=== PATIENT | female | born 1950 | race Caucasian/White ===

== ENCOUNTER → 2016-09-26 | Outpatient (CLI) | payer MEDICARE ==
--- NOTE | 2016-09-27 00:40 | US ---
EXAMINATION TYPE: US st tissue neck DATE OF EXAM: 09/26/2016 2:06 PM COMPARISON: NONE CLINICAL HISTORY: 66-year-old female D17.0 LIPOMA. Left neck/shoulder palpable area. TECHNIQUE: Targeted sonographic examination along the left neck/shoulder at the palpable site. FINDINGS: PURCHASING ASSOCIATE NOTES: Scanned left neck/shoulder palpable area. No abnormality seen at this time. Scanned right neck/shoulder for comparison. No abnormality seen at this time IMPRESSION: Targeted scanning at the left neck/shoulder shows relatively symmetric appearance to the contralatera l side without discrete sonographic abnormality.
--- NOTE | 2016-09-27 01:03 | BD ---
EXAMINATION TYPE: MG DEXA axial skeleton. DATE OF EXAM: 09/26/2016 1:57 PM COMPARISON: NONE CLINICAL HISTORY: 66-year-old female after specified disorders of bone density, postmenopausal screen ing Height: 62 IN Weight: 135 LBS FRAX RISK QUESTIONS: Alcohol (3 or more units per day): YES Family History (Parent hip fracture): NO Glucocorticoids (More than 3mos): NO (Ex: prednisone, prednisolone, methylprednisolone, dexamethasone, and hydrocortisone). History of Fracture in Adulthood: NO Secondary Osteoporosis: 1. Type 1 Diabetes: NO 2. Hyperthyroidism: NO 3. Menopause before 45: YES AGE 34 4. Malnutrition: NO 5. Chronic liver disease: NO Rheumatoid Arthritis: NO Current Tobacco Use: YES RISK FACTORS HISTORY OF: Family History of Osteoporosis: YES AUNT(P) Smoke tobacco: YES Drink Alcohol: YES Active: YES Diet low in dairy products/other sources of calcium: YES Postmenopausal woman: AGE 34 MEDICATIONS: Additional Medications: CALCIUM, VIT D, ZOLOFT, ABILIFY, ACID REFLUX MEDS, EXAM MEASUREMENTS: Bone mineral densitometry was performed using the [email or web address] System. Bone mineral density as measured about the Lumbar spine is: ----- L1-L4(G/cm2): 1.063 T Score Values are as follows: ----- L2: -1.8 ----- L3: -0.7 ----- L4: -0.1 ----- L1-L4: Bone mineral density BASELINE Bone mineral density about the R hip (g/cm2): 0.751 Bone mineral density about the L hip (g/cm2): 0.749 T Score values are as follows: -----R Neck: -2.1 -----L Neck: -2.1 -----R Total: -1.0 -----L Total: -0.8 Bone mineral density BASELINE IMPRESSION: Osteopenia as indicated by T score values in the lumbar spine and both hips. There is slightly increased risk of fracture and the patient may be considered for treatment. Re-Screen 2-5 years. NOTE: T-SCORE=SD OF THE YOUNG ADULT MEAN.
--- NOTE | 2016-09-28 07:33 | MM ---
Reason for exam: screening (asymptomatic). Last mammogram was performed 1 year and 2 months ago. History: Family history of breast cancer in 2 sisters. Physical Findings: A clinical breast exam by your physician is recommended on an annual basis and results should be correlated with mammographic findings. MG 3D Screening Mammo W/Cad Bilateral CC and MLO view(s) were taken. Prior study comparison: July 30, 2015, mammogram, performed at [facility]. The breast tissue is heterogeneously dense. This may lower the sensitivity of mammography. No significant changes when compared with prior studies. ASSESSMENT: Benign, BI-RAD 2 RECOMMENDATION: Routine screening mammogram of both breasts in 1 year.
== END ==
LOC: RADMAMWWP 13:32
PROVIDERS: ATTEND Family Medicine
DX: Z12.31 Encounter for screening mammogram for malignant neoplasm of breast (principal); M85.80 Other specified disorders of bone density and structure, unspecified site; D17.0 Benign lipomatous neoplasm of skin and subcutaneous tissue of head, face and neck
CPT/HCPCS: 77080; 77063; 76536; G0202

== ENCOUNTER 2017-07-04 08:04 | Day surgery (SDC) | payer MEDICARE ==
[2017-06-29 14:20] VITALS: BMI 24.7
[~2017-07-04 08:04] MED LIST: LACTATED RINGERS 1,000 ML IV SCH
[2017-07-04 08:37] VITALS: TEMP 98
[2017-07-04] MEDS ORDERED: LIDOCAINE 1% 20 ML VIAL (10MG/ML) FOR IV START INTRADERMA ONE (08:38)
[2017-07-04] MEDS ORDERED: PROPOFOL 10 MG/ML 20 ML VIAL IV ONE (08:44)
--- NOTE | 2017-07-04 09:18 | P.PCN ---
Date of Procedure: 07/04/17 Procedure(s) Performed: Procedure: Colonoscopy and biopsy. Preoperative diagnosis: Screening for neoplasia. Postoperative diagnosis: Exam of the colon and terminal ileum within normal limits. Preparation: HalfLytely prep. Sedation: Was provided by anesthesia. Brief clinical history: The patient is 67-year-old female who is referred for this evaluation for screening for neoplasia. She had a prior exam more than 10 years ago. The patient reported change in her bowels within the last year including more frequent and looser stools and episodes of diarrhea. No bleeding or anemia. Procedure: With the patient on her left lateral decubitus position and after informed consent and adequate sedation, the perianal area was inspected and it did not show any fissures or fistulas. There were no masses felt on digital rectal examination. The Olympus CFQ 160L video colonoscope was then inserted in the rectum in the usual fashion and advanced to the cecum. I intubated the ileocecal valve and examined the terminal ileum. Terminal ileum and colon appeared healthy with no edema, erythema, friability, ulceration, exudation or spontaneous bleeding. No polyps or tumors were seen or any obvious diverticular disease or other pathology. I retroflexed the endoscope in the rectum before the endoscope was withdrawn. I obtained biopsies from the terminal ileum and right colon as well. The patient tolerated the procedure well. Plan: The patient was reassured. Will await biopsy results. I recommended repeat colonoscopy in 10 years. Further plans in regards to her bowel issues can be made based on her course and biopsy results. I will be happy to see her in the office if her symptoms persist. She will follow-up with you as planned.
[2017-07-04 09:45] VITALS: BP 117/63; PULSE 77; RESP 18
== END 2017-07-04 09:52 | disposition home or self-care (01) ==
LOC: ORWHC2ENDO 08:04
DX: R19.4 Change in bowel habit (principal); R19.7 Diarrhea, unspecified; J44.9 Chronic obstructive pulmonary disease, unspecified; K21.9 Gastro-esophageal reflux disease without esophagitis; I10 Essential (primary) hypertension; E78.5 Hyperlipidemia, unspecified; G47.33 Obstructive sleep apnea (adult) (pediatric); Z79.899 Other long term (current) drug therapy; Z88.1 Allergy status to other antibiotic agents; Z88.6 Allergy status to analgesic agent; Z88.8 Allergy status to other drugs, medicaments and biological substances
CPT/HCPCS: 88305; 45380; J2704

== ENCOUNTER → 2017-11-30 | Outpatient (CLI) | payer MEDICARE ==
--- NOTE | 2017-11-30 14:49 | XR ---
EXAMINATION TYPE: XR chest 2V DATE OF EXAM: 11/30/2017 COMPARISON: None HISTORY: 67 year-old female shortness of breath, COPD TECHNIQUE: Frontal and lateral views FINDINGS: Heart normal size. Mild atherosclerotic calcifications in the aortic arch. Mild interstitial prominen ce and mild hyperinflation. Some hazy density at the cardiac apex suggests epicardial fat pad. No con solidation or pleural effusion. IMPRESSION: Mild COPD changes. No acute cardiopulmonary process.
== END | disposition home or self-care (01) ==
LOC: RADXRMAIN 13:44
PROVIDERS: ATTEND Family Medicine
DX: J44.9 Chronic obstructive pulmonary disease, unspecified (principal)
CPT/HCPCS: 71046

== ENCOUNTER → 2018-04-18 | Outpatient (CLI) | payer MEDICARE ==
--- NOTE | 2018-04-18 12:38 | US ---
EXAMINATION TYPE: US abdomen complete DATE OF EXAM: 04/18/2018 COMPARISON: NONE CLINICAL HISTORY: R19.4 Change in bowel habits. Nausea, abdominal pain. EXAM MEASUREMENTS: Liver Length: 15.1 cm Gallbladder Wall: 0.1 cm CBD: 0.2 cm Spleen: 8.3 cm Right Kidney: 11.0 x 5.2 x 4.8 cm Left Kidney: 10.7 x 4.7 x 4.7 cm Pancreas: wnl Liver: wnl Gallbladder: wnl Evidence for sonographic Carlisle's sign: No CBD: wnl Spleen: wnl Right Kidney: wnl Left Kidney: wnl Upper IVC: wnl Abd Aorta: wnl The liver is homogenous. The intrahepatic portion of the IVC and proximal abdominal aorta are within normal limits. There is no evidence of cholelithiasis. Common bile duct is unremarkable. The visu alized portions of the pancreas are homogenous. The spleen is unremarkable. Kidneys are symmetric a nd free of hydronephrosis. No renal lesions are seen. IMPRESSION: No distinct abnormality is appreciated.
== END ==
LOC: RADUSWWP 11:54
PROVIDERS: ATTEND Family Medicine
DX: R19.4 Change in bowel habit (principal)
CPT/HCPCS: 76700

== ENCOUNTER → 2018-05-18 | Outpatient (CLI) | payer MEDICARE ==
--- NOTE | 2018-05-27 11:18 | MM ---
Reason for exam: screening (asymptomatic). Last mammogram was performed 1 year and 8 months ago. History: Family history of breast cancer in 2 sisters. MG 3D Screening Mammo W/Cad Bilateral CC and MLO view(s) were taken. Prior study comparison: September 26, 2016, bilateral MG 3d screening mammo w/cad. July 30, 2015, mammogram, performed at [facility]. The breast tissue is heterogeneously dense. This may lower the sensitivity of mammography. There are benign-appearing round, dystrophic bilateral breast calcification. No discrete abnormality. ASSESSMENT: Benign, BI-RAD 2 RECOMMENDATION: Routine screening mammogram of both breasts in 1 year.
== END | disposition home or self-care (01) ==
LOC: RADMAMWWP 09:57
PROVIDERS: ATTEND Family Medicine
DX: Z12.31 Encounter for screening mammogram for malignant neoplasm of breast (principal)
CPT/HCPCS: 77063; 77067

== ENCOUNTER 2018-05-22 09:26 | Day surgery (SDC) | payer MEDICARE ==
[2018-05-17 13:38] VITALS: BMI 24.7
[2018-05-22 09:46] VITALS: RESP 16; TEMP 97.7
[2018-05-22] MEDS ORDERED: PROPOFOL 10 MG/ML 20 ML VIAL IV ONE (10:12)
[2018-05-22] MEDS ORDERED: LIDOCAINE 1% INJ 10MG/ML (20 ML MDV) ONE (10:12)
--- NOTE | 2018-05-22 10:46 | P.PCN ---
Date of Procedure: 05/22/18 Procedure(s) Performed: Procedure: Esophagogastroduodenoscopy and biopsy. Preoperative diagnosis: Heartburn and dyspepsia. Postoperative diagnosis: 1. Mild gastritis. 2. Multiple biopsies obtained from the duodenum, antrum and esophagus. Preparation and sedation: Was provided by anesthesia. Brief clinical history: The patient is a 68-year-old female who is referred for this evaluation for heartburn and dyspepsia type symptoms of several months duration. The patient had a colonoscopy with me in June of last year for screening for neoplasia and her exam was within normal limits. She was experiencing frequent looser stools back then and biopsies obtained from the terminal ileum and colon were normal. This evaluation is to assess for esophagitis, complicated reflux disease or other pathology. Procedure: With the patient on her left lateral decubitus position and after informed consent and adequate sedation, I passed the Olympus-GIF 190 video upper endoscope through the cricopharyngeus down the esophagus. There was no obvious hiatal hernia or any obvious esophagitis or complicated reflux disease. The endoscope was then passed into the stomach which was insufflated with air and inspected in detail including the retroflex view in the cardia. There was some mottling and erythema in the antrum but no ulcers or erosions. Pyloric channel, duodenal bulb, post bulbar area and descending duodenum appeared within normal limits. Because of her symptoms, I obtained biopsies from the duodenum, antrum and esophagus then the endoscope was withdrawn. The patient tolerated the procedure well. Plan: The patient was reassured. Will await biopsy results and make further plans based on her course and biopsy results. She will follow-up with you as planned and I will be happy to see in the office if her symptoms persist.
[2018-05-22 11:00] VITALS: BP 152/83; PULSE 63
== END 2018-05-22 11:19 | disposition home or self-care (01) ==
LOC: ORWHC2ENDO 09:26
DX: K29.50 Unspecified chronic gastritis without bleeding (principal); K21.9 Gastro-esophageal reflux disease without esophagitis; J44.9 Chronic obstructive pulmonary disease, unspecified; M19.90 Unspecified osteoarthritis, unspecified site; I10 Essential (primary) hypertension; E78.5 Hyperlipidemia, unspecified; G47.33 Obstructive sleep apnea (adult) (pediatric); D68.0 Von Willebrand disease; F17.210 Nicotine dependence, cigarettes, uncomplicated; Z79.51 Long term (current) use of inhaled steroids; Z79.899 Other long term (current) drug therapy; Z88.6 Allergy status to analgesic agent; Z88.0 Allergy status to penicillin; Z88.1 Allergy status to other antibiotic agents
CPT/HCPCS: 88305; 43239; J2001; J2704

== ENCOUNTER → 2019-06-24 | Outpatient (CLI) | payer MEDICARE ==
--- NOTE | 2019-06-24 17:39 | XR ---
EXAMINATION TYPE: XR Hip Limited LT DATE OF EXAM: 06/24/2019 CLINICAL HISTORY: Pain TECHNIQUE: AP and frogleg views of the left hip are obtained. COMPARISON: None. FINDINGS: There is no acute fracture/dislocation evident in the left hip. The joint space in the hi p appears within normal limits. The overlying soft tissue appears unremarkable. IMPRESSION: There is no acute fracture or dislocation in the left hip.
--- NOTE | 2019-06-24 17:39 | XR ---
EXAMINATION TYPE: XR pelvis AP view DATE OF EXAM: 06/24/2019 CLINICAL HISTORY: pain TECHNIQUE: Single view the pelvis is submitted. FINDINGS: No evidence for fracture, dislocation or bony lesion. Joint spaces are well-preserved. S I joints appear symmetric. IMPRESSION: 1. No acute fracture or dislocation seen. ICD 10 NO FRACTURE, INITIAL EVALUATION
--- NOTE | 2019-06-24 17:40 | XR ---
EXAMINATION TYPE: XR lumbar spine 2 or 3V DATE OF EXAM: 06/24/2019 CLINICAL HISTORY: pain TECHNIQUE: Three views of the lumbar spine are submitted. COMPARISON: None. FINDINGS: There are 5 lumbar type vertebral bodies identified. The lumbar spine shows satisfactory alignment w ithout evidence of acute fracture or dislocation. Vertebral body heights are within normal limits. Moderate to severe degenerative disc space narrowing L4-5 and L5-S1. Grade 1 anterolisthesis L4 and L 5 3 mm. The overlying soft tissue appears unremarkable. IMPRESSION: No acute fracture or dislocation is seen in the lumbar spine. ICD 10 NO FRACTURE, INITIAL EVALUATION
--- NOTE | 2019-06-24 17:41 | XR ---
EXAMINATION TYPE: XR ribs LT w pa chest xray DATE OF EXAM: 06/24/2019 COMPARISON: NONE HISTORY: Pain TECHNIQUE: Single view of the chest 4 views of the ribs are submitted. FINDINGS: The lungs are clear. No Evidence for pneumothorax. No evidence for focal contusion. Medi astinal structures are midline. Evaluation of the ribs fails to demonstrate evidence for displaced r ib fracture or secondary sign of rib fracture. IMPRESSION: Negative study
== END | disposition home or self-care (01) ==
LOC: RAD 17:03
PROVIDERS: ATTEND Nurse Practitioner
DX: M25.552 Pain in left hip (principal); R07.81 Pleurodynia; W01.0XXA Fall on same level from slipping, tripping and stumbling without subsequent striking against object, initial encounter
CPT/HCPCS: 72100; 72170; 73501

== ENCOUNTER → 2020-05-11 | Outpatient (CLI) | payer MEDICARE ==
--- NOTE | 2020-05-11 13:29 | MM ---
Reason for exam: screening (asymptomatic). Last mammogram was performed 2 years ago. History: Patient is postmenopausal. Family history of breast cancer in 2 sisters. Took hormonal contraceptives for 5 years. Physical Findings: A clinical breast exam by your physician is recommended on an annual basis and results should be correlated with mammographic findings. MG 3D Screening Mammo W/Cad Bilateral CC and MLO view(s) were taken. Prior study comparison: May 18, 2018, bilateral MG 3d screening mammo w/cad. September 26, 2016, bilateral MG 3d screening mammo w/cad. The breast tissue is heterogeneously dense. This may lower the sensitivity of mammography. There are benign appearing round calcifications in the right breast. ASSESSMENT: Benign, BI-RAD 2 RECOMMENDATION: Routine screening mammogram of both breasts in 1 year.
== END | disposition home or self-care (01) ==
LOC: RADMAMWWP 09:19
PROVIDERS: ATTEND Family Medicine
DX: Z12.31 Encounter for screening mammogram for malignant neoplasm of breast (principal)
CPT/HCPCS: 77063; 77067

== ENCOUNTER → 2021-06-01 | Outpatient (CLI) | payer MEDICARE ==
--- NOTE | 2021-06-01 14:51 | BD ---
EXAMINATION TYPE: Axial Bone Density DATE OF EXAM: 06/01/2021 COMPARISON: DEXA bone scan September 26, 2016 CLINICAL HISTORY: Postmenopausal female Height: 5 FT 1 1/2 IN Weight: 138 FRAX RISK QUESTIONS: Alcohol (3 or more units per day): NO Family History (Parent hip fracture): NO Glucocorticoids (More than 3mos): NO (Ex: prednisone, prednisolone, methylprednisolone, dexamethasone, and hydrocortisone). History of Fracture in Adulthood: NO Secondary Osteoporosis: 1. Type 1 Diabetes: NO 2. Hyperthyroidism: NO 3. Menopause before 45: YES 4. Malnutrition: NO 5. Chronic liver disease: NO Rheumatoid Arthritis: NO Current Tobacco Use: YES RISK FACTORS HISTORY OF: Surgery to Spine/Hip(right/left)/Wrist (right/left): NO Family History of Osteoporosis: YES Active: YES Diet low in dairy products/other sources of calcium: NO Postmenopausal woman: YES Take estrogen and/or progesterone medications: NO Lost more than 2 inches in height since high school: NO Frequent falls: NO Poor Health: GOOD Hyperparathyroidism: NO Adrenal Insufficiency: NO MEDICATIONS: Additional Medications: ABILIFY,LIPITOR, PREVACID, REGLAN,METOPROLOL TARTRATE, ZOLOFT, ADVAIR, CALCIUM Additional History: EXAM MEASUREMENTS: Bone mineral densitometry was performed using the [employer] System. Bone mineral density as measured about the Lumbar spine is: ----- L1-L4(G/cm2): 1.088 T Score Values are as follows: ----- L2: -1.6 ----- L3: -0.7 ----- L4: 0.1 ----- L1-L4: -0.8 Bone mineral density has: INCREASED 1.4 % since study of: 2016 Bone mineral density about the R hip (g/cm2): 0.693 Bone mineral density about the L hip (g/cm2): 0.687 T Score values are as follows: -----R Neck: -2.5 -----L Neck: -2.5 -----R Total: -1.4 -----L Total: -1.3 Bone mineral density has: DECREASED -6.5 % since study of: 2017 IMPRESSION: Osteopenia (T Score between -2.5 and -1) remains present. There is slightly increased risk of fracture and the patient may be considered for treatment. Re-Screen 2-5 years. NOTE: T-SCORE=SD OF THE YOUNG ADULT MEAN.
--- NOTE | 2021-06-02 11:42 | MM ---
Reason for exam: screening (asymptomatic). Last mammogram was performed 1 year and 1 month ago. History: Patient is postmenopausal. Family history of breast cancer in sister at age 30 and breast cancer in sister at age 40. Took hormonal contraceptives for 5 years. Physical Findings: A clinical breast exam by your physician is recommended on an annual basis and results should be correlated with mammographic findings. MG 3D Screening Mammo W/Cad Bilateral CC and MLO view(s) were taken. Prior study comparison: May 11, 2020, bilateral MG 3d screening mammo w/cad. May 18, 2018, bilateral MG 3d screening mammo w/cad. The breast tissue is heterogeneously dense. This may lower the sensitivity of mammography. Finding: There are indeterminate calcifications in the subareolar position of the left breast and medial on left CC view. New finding since May 11, 2020 and May 18, 2018. ASSESSMENT: Incomplete: need additional imaging evaluation, BI-RAD 0 RECOMMENDATION: Special view mammogram of the left breast. [facility] will attempt to contact patient to return for supplemental views.
== END | disposition home or self-care (01) ==
LOC: RADMAMWWP 11:02
PROVIDERS: ATTEND Family Medicine
DX: Z12.31 Encounter for screening mammogram for malignant neoplasm of breast (principal); M85.89 Other specified disorders of bone density and structure, multiple sites; Z78.0 Asymptomatic menopausal state; Z80.3 Family history of malignant neoplasm of breast
CPT/HCPCS: 77063; 77067; 77080

== ENCOUNTER → 2021-06-01 | Outpatient (CLI) | payer MEDICARE ==
--- NOTE | 2021-06-01 11:48 | CTL ---
EXAMINATION TYPE: CT Low Dose Lung DATE OF EXAM ORDERED: 06/01/2021 HISTORY: . Lung cancer screening CT DLP: [address] CTDI: 1.99 mGy Automated exposure control for dose reduction was used. SCREENING VISIT: COMPARISON: None TECHNIQUE: Low dose computed tomography scan was performed through the chest at 1 mm thick sections a nd reconstructed images in multiple planes at 1 mm and [address] DIAGNOSTIC QUALITY: Satisfactory FINDINGS: There is emphysematous changes with interlobular septal thickening compatible with mild chronic inter stitial lung disease. There is biapical pleural thickening. There is a 4 mm nodule subpleural right upper lobe axial image 46. Subpleural nodule 4 mm left upper lobe axial image 52 Additional significant subcutaneous 5 mm multiple subpleural nodules are seen all likely chronic infl ammatory. There are subsegmental changes most typical of atelectasis right lower lobe. No pneumothorax or sizab le pleural effusion. No consolidative pneumonia. Atherosclerotic change aorta. Coronary artery calcification. The heart is enlarged. Hypertrophic and degenerative changes of the spine. 1.2 cm left adrenal nodule most typical of adrenal adenoma. IMPRESSION: 1. COPD with findings suggestive of mild chronic lung disease. 2. Multiple 5 mm or less subpleural nodules likely benign and inflammatory. 2. Coronary artery calcium change. CT LUNG RAD AND CT CHEST RECOMMENDATION: Lung-Rad 2 Benign Appearance or Behavior: Continue annual sc reening with LDCT in 12 months.
== END | disposition home or self-care (01) ==
LOC: RADCTMAIN 11:12
PROVIDERS: ATTEND Family Medicine
DX: Z12.2 Encounter for screening for malignant neoplasm of respiratory organs (principal); J44.9 Chronic obstructive pulmonary disease, unspecified; R91.8 Other nonspecific abnormal finding of lung field; Z87.891 Personal history of nicotine dependence
CPT/HCPCS: 71271

== ENCOUNTER → 2021-06-03 | Outpatient (CLI) | payer MEDICARE ==
--- NOTE | 2021-06-04 10:52 | MM ---
Reason for exam: additional evaluation requested from abnormal screening. Last mammogram was performed less than 1 month ago. History: Patient is postmenopausal. Family history of breast cancer in sister at age 30 and breast cancer in sister at age 40. Took hormonal contraceptives for 5 years. Physical Findings: Nurse did not find any significant physical abnormalities on exam. MG 3D Work Up W/Cad LT CC with magnification, LM with magnification, and LM view(s) were taken of the left breast. Prior study comparison: June 01, 2021, bilateral MG 3d screening mammo w/cad. May 11, 2020, bilateral MG 3d screening mammo w/cad. The breast tissue is heterogeneously dense. This may lower the sensitivity of mammography. No suspicious clustered calcifications. These results were verbally communicated with the patient and result sheet given to the patient on 06/03/21. ASSESSMENT: Probably benign, BI-RAD 3 RECOMMENDATION: Follow-up diagnostic mammogram of the left breast in 6 months.
== END | disposition home or self-care (01) ==
LOC: RADMAMWWP 13:33
PROVIDERS: ATTEND Family Medicine
DX: R92.8 Other abnormal and inconclusive findings on diagnostic imaging of breast (principal); Z78.0 Asymptomatic menopausal state; Z80.3 Family history of malignant neoplasm of breast
CPT/HCPCS: 77065; G0279; 77061

== ENCOUNTER → 2021-12-01 | Outpatient (CLI) | payer MEDICARE ==
--- NOTE | 2021-12-01 10:32 | MM ---
Reason for Exam: Follow-up at short interval from prior study. Last screening mammogram was performed 6 month(s) ago. Patient History: Menarche at age 13. First Full-Term at age 24. Hysterectomy at age 34. Postmenopausal. Patient used Hormonal Contraceptives for 5 years. Sister had breast cancer, age 30. Sister had breast cancer, age 40. Risk Values: Seema 5 year model risk: 7.0%. NCI Lifetime model risk: 18.3%. Prior Study Comparison: 05/11/2020 Bilateral Screening Mammogram, [facility]. 06/01/2021 Bilateral Screening Mammogram, [facility]. 06/03/2021 Left Diagnostic Mammogram, [facility]. Tissue Density: Left: The breast tissue is heterogeneously dense. This may lower the sensitivity of mammography. Findings: Analyzed By CAD. No suspicious microcalcifications in left breast. No evidence for mass or distortion. Overall Assessment: Benign, BI-RAD 2 Management: Screening Mammogram of both breasts in 6 months. A clinical breast exam by your physician is recommended on an annual basis and results should be correlated with mammographic findings. This exam should not preclude additional follow-up of suspicious palpable abnormalities. Results were given to the patient verbally at the time of exam. Electronically signed and approved by: Manohar Hancock M.D. Radiologis
== END | disposition home or self-care (01) ==
LOC: RADMAMWWP 10:05
PROVIDERS: ATTEND Family Medicine
DX: R92.8 Other abnormal and inconclusive findings on diagnostic imaging of breast (principal); Z78.0 Asymptomatic menopausal state; Z80.3 Family history of malignant neoplasm of breast
CPT/HCPCS: 77065; G0279; 77061

== ENCOUNTER → 2022-06-06 | Outpatient (CLI) | payer MEDICARE ==
--- NOTE | 2022-06-06 14:40 | CTL ---
EXAMINATION TYPE: CT Low Dose Lung DATE OF EXAM ORDERED: 06/06/2022 HISTORY: Z87.891 personal hx tobacco use. Lung cancer screening CT DLP: [address] CTDI: 1.8 mGy Automated exposure control for dose reduction was used. SCREENING VISIT: Follow-up COMPARISON: CT Low Dose Lung cancer screening 06/01/2021 TECHNIQUE: Low dose computed tomography scan was performed through the chest at 1 mm thick sections a nd reconstructed images in multiple planes at 1 mm and [address] DIAGNOSTIC QUALITY: Satisfactory FINDINGS: LUNG NODULES: No clinically significant pulmonary nodules are identified. Previous before meals nodul es are more consistent with subpleural fibrotic changes. No new or enlarging pulmonary nodules greate r than 5 mm demonstrated. LUNGS: COPD: Severity: None Fibrosis: Severity: Mild Lymph nodes: None Other findings: None RIGHT PLEURAL SPACE: Effusion: None Calcification: None Thickening: None Pneumothorax: None LEFT PLEURAL SPACE: Effusion: None Calcification: None Thickening: None Pneumothorax: None HEART: Heart Size: Normal Coronary Calcification: Small Pericardial Effusion: None OTHER FINDINGS: Upper abdomen: None Bony thorax: None Supraclavicular region: None Other: None IMPRESSION: No clinically significant pulmonary nodules. No new or enlarging pulmonary nodules greate r than [address] LUNG RAD AND CT CHEST RECOMMENDATION: Lung-Rad 1 Negative: Continue annual screening with LDCT in 12 months. S Modifier (other clinically significant findings): None
--- NOTE | 2022-06-08 12:10 | MM ---
Reason for Exam: Additional evaluation requested from prior study. Last screening mammogram was performed 12 month(s) ago. Patient History: Menarche at age 13. First Full-Term at age 24. Hysterectomy at age 34. Postmenopausal. Patient used Hormonal Contraceptives for 5 years. Sister had breast cancer, age 30. Sister had breast cancer, age 40. Risk Values: Seema 5 year model risk: 7.1%. NCI Lifetime model risk: 17.5%. Tissue Density: The breast tissue is heterogeneously dense. This may lower the sensitivity of mammography. Findings: Analyzed By CAD. Benign-appearing bilateral axillary lymph nodes are redemonstrated. There are occasional small benign-appearing round calcifications in the bilateral breasts redemonstrated. No suspicious new mass or distortion in either breast. Overall Assessment: Benign, BI-RAD 2 Management: Screening Mammogram of both breasts in 1 year. A clinical breast exam by your physician is recommended on an annual basis and results should be correlated with mammographic findings. This exam should not preclude additional follow-up of suspicious palpable abnormalities. Results were given to the patient verbally at the time of exam. Electronically signed and approved by: Rivas Tapia M.D.
== END | disposition home or self-care (01) ==
LOC: RADMAMWWP 12:47
PROVIDERS: ATTEND Family Medicine
DX: Z12.2 Encounter for screening for malignant neoplasm of respiratory organs (principal); R92.8 Other abnormal and inconclusive findings on diagnostic imaging of breast; Z87.891 Personal history of nicotine dependence; Z78.0 Asymptomatic menopausal state; Z80.3 Family history of malignant neoplasm of breast
CPT/HCPCS: 77066; 71271; G0279; 77062

== ENCOUNTER → 2023-06-07 | Outpatient (CLI) | payer MEDICARE ==
--- NOTE | 2023-06-07 20:47 | MM ---
Reason for Exam: Screening (asymptomatic). Last screening mammogram was performed 12 month(s) ago. Patient History: Menarche at age 13. First Full-Term at age 24. Hysterectomy at age 34. Postmenopausal. Patient used Hormonal Contraceptives for 5 years. Sister had breast cancer, age 30. Sister had breast cancer, age 40. Risk Values: Tawana 5 year model risk: 7.1%. NCI Lifetime model risk: 16.6%. Prior Study Comparison: 06/03/2021 Left Diagnostic Mammogram, [facility]. 12/01/2021 Left MG 3D diag mammo w/cad LT, [facility]. 06/06/2022 Bilateral MG 3D diag mammo w/cad [place], [facility]. Tissue Density: The breast tissue is heterogeneously dense. This may lower the sensitivity of mammography. Findings: Analyzed By CAD. There is no suspicious group of microcalcifications or new suspicious mass in either breast. Overall Assessment: Negative, BI-RAD 1 Management: Screening Mammogram of both breasts in 1 year. SEE NOTE BELOW IN REGARDS TO PATIENT'S INCREASED 5 YEAR TAWANA SCORE. Patient should continue monthly self-breast exams. A clinical breast exam by your physician is recommended on an annual basis. This exam should not preclude additional follow-up of suspicious palpable abnormalities. Note on Tawana scores and lifetime risk: 1. A Tawana score greater than 3% is considered moderate risk. If this is the case, consider specialist referral to assess eligibility for a risk reducing agent. 2. If overall lifetime risk for the development of breast cancer is 20% or higher, the patient may qualify for future screening with alternating mammogram and breast MRI. Electronically signed and approved by: Rosa Maria Sheriff M.D. Radiologist
--- NOTE | 2023-06-09 18:14 | CTL ---
EXAMINATION TYPE: CT Low Dose Lung DATE OF EXAM ORDERED: 06/07/2023 HISTORY: . Lung cancer screening CT DLP: 76 mGycm Automated exposure control for dose reduction was used. SCREENING VISIT: Subsequent COMPARISON: 06/06/2022 TECHNIQUE: Low dose computed tomography scan was performed through the chest at 1 mm thick sections a nd reconstructed images in the coronal plane at [address] DIAGNOSTIC QUALITY: Satisfactory FINDINGS: LUNG NODULES: None. LUNGS: COPD: Severity: None Fibrosis: Severity: Minimal Lymph nodes: None Other findings: None RIGHT PLEURAL SPACE: Effusion: None Calcification: None Thickening: None Pneumothorax: None LEFT PLEURAL SPACE: Effusion: None Calcification: None Thickening: None Pneumothorax: None HEART: Heart Size: Normal Coronary calcification: Moderate Pericardial effusion: None OTHER FINDINGS: Upper abdomen: Normal Bony thorax: Normal Supraclavicular region: Normal Other: Ascending thoracic aorta at the main pulmonary artery is 3.2 cm. Main pulmonary artery bifurca tion is 2.4 cm. IMPRESSION: 1. No suspicious changes for primary or metastatic neoplasm FOLLOW UP CT CHEST RECOMMENDATION: Follow-up low-dose CT chest [address] LUNG RAD: Lung-Rad 1 Negative
== END | disposition home or self-care (01) ==
LOC: RADMAMWWP 11:25
PROVIDERS: ATTEND Family Medicine
DX: Z12.31 Encounter for screening mammogram for malignant neoplasm of breast (principal); Z12.2 Encounter for screening for malignant neoplasm of respiratory organs; F17.210 Nicotine dependence, cigarettes, uncomplicated; Z80.3 Family history of malignant neoplasm of breast; Z78.0 Asymptomatic menopausal state
CPT/HCPCS: 71271; 77063; 77067

== ENCOUNTER → 2024-06-18 | Outpatient (CLI) | payer MEDICARE ==
--- NOTE | 2024-06-18 12:24 | CTL ---
EXAMINATION TYPE: CT Low Dose Lung DATE OF EXAM: 06/18/2024 11:43 AM COMPARISON: None. CLINICAL INDICATION: Female, 74 years old with history of F17.210 nicotine dependence; lung CA screen ing, history of tobacco use. TECHNIQUE: Multiple axial non-contrast scans were obtained from approximately the lung apices through the upper abdomen. Coronal and sagittal reformatted images were obtained. Low dose technique was uti lized. MIP were created on a separate workstation and submitted for review. CT DLP: 87 mGycm, Automated exposure control for dose reduction was used. CT Contrast: Contrast used: None Oral contrast used: None FINDINGS: Lack of intravenous contrast and low dose technique limits the evaluation of the vascular and soft ti ssue structures. LUNGS: No evidence of pulmonary fibrosis. No evidence of focal consolidation, pneumothorax or pleural effusion. Centrilobular emphysema changes. Nodules: RUL: None. RML: None. RLL: None. BARBARA: None. LLL: 2 mm series 9 image 45. AIRWAY: Patent and unremarkable. HEART: Size within normal limits.Atherosclerosis of the arterial vasculature. MEDIASTINUM: No gross evidence of adenopathy. VASCULATURE: No aortic aneurysm. MUSCULOSKELETAL: Mild disc degeneration changes are present throughout the thoracolumbar spine. SOFT TISSUES/LYMPH NODES: Unremarkable. LOWER NECK: No significant findings. UPPER ABDOMEN: No significant findings. IMPRESSION: 1. No clinically significant pulmonary nodules. 2. Mild emphysema. 3. Moderate coronary artery atherosclerosis. CT LUNG RAD AND CT CHEST RECOMMENDATION: Lung-Rad 2 Benign Appearance or Behavior: Continue annual sc reening with LDCT in 12 months. S Modifier (other clinically significant findings): None Recommend smoking cessation (if current smoker), or continuation of smoking cessation (if prior smoke r). Annual screening for lung cancer with low-dose computed tomography is recommended in adults ages 55 to 77 years who have a 30 pack-year smoking history and currently smoke or have quit within the pa st 15 years. Screening should be discontinued once a person has not smoked for 15 years or develops a health problem that substantially limits life expectancy or the ability or willingness to have curat maryjo lung surgery. Lung rads 2021 [email or web address] [facility], , 06/18/2024 12:22 PM
--- NOTE | 2024-06-18 12:26 | MM ---
Reason for Exam: Screening (asymptomatic). Last mammogram was performed 1 year(s) and 1 month(s) ago. Patient History: Menarche at age 13. First Full-Term at age 24. Hysterectomy at age 34. Postmenopausal. Patient used Hormonal Contraceptives for 5 years. Sister had breast cancer, age 30. Sister had breast cancer, age 40. Risk Values: Seema 5 year model risk: 7.1%. NCI Lifetime model risk: 15.7%. Prior Study Comparison: 12/01/2021 Left MG 3D diag mammo w/cad [facility], [facility]. 06/06/2022 Bilateral MG 3D diag mammo w/cad [facility], [facility]. 06/07/2023 Bilateral MG 3D screening mammo w/cad, [facility]. Tissue Density: The breasts are heterogeneously dense, which may obscure small masses. Findings: Analyzed By CAD. Benign-appearing right axillary lymph nodes are redemonstrated. There are a few small benign-appearing calcifications bilaterally redemonstrated. There is no suspicious group of microcalcifications or new suspicious mass in either breast. Overall Assessment: Benign, BI-RAD 2 Management: Screening Mammogram of both breasts in 1 year. . Patient should continue monthly self-breast exams. A clinical breast exam by your physician is recommended on an annual basis. This exam should not preclude additional follow-up of suspicious palpable abnormalities. Note on Seema scores and lifetime risk: 1. A Seema score greater than 3% is considered moderate risk. If this is the case, consider specialist referral to assess eligibility for a risk reducing agent. 2. If overall lifetime risk for the development of breast cancer is 20% or higher, the patient may qualify for future screening with alternating mammogram and breast MRI. [facility], , 06/18/2024 12:23 PM. Electronically signed and approved by: Rivas Tapia M.D.
== END | disposition home or self-care (01) ==
LOC: RADCTMAIN 11:08
PROVIDERS: ATTEND Family Medicine
DX: Z12.31 Encounter for screening mammogram for malignant neoplasm of breast (principal); Z12.2 Encounter for screening for malignant neoplasm of respiratory organs; J43.9 Emphysema, unspecified; I25.10 Atherosclerotic heart disease of native coronary artery without angina pectoris; F17.210 Nicotine dependence, cigarettes, uncomplicated; R92.333 Mammographic heterogeneous density, bilateral breasts; R92.1 Mammographic calcification found on diagnostic imaging of breast; Z78.0 Asymptomatic menopausal state; Z80.3 Family history of malignant neoplasm of breast
CPT/HCPCS: 71271; 77063; 77067